=== PATIENT | female | born 2000 | race Caucasian/White ===

== ENCOUNTER 2022-10-13 15:26 | Emergency (ER) | payer BC ==
[~2022-10-13] VITALS: Ht 167.6 cm; Wt 68.5 kg
--- NOTE | 2022-10-13 15:39 | NUR ---
BIB C/O TONGUE SWELLING S/P EATING CASHEWS, PT ATTACHED TO MONITOR, VITALS ARE WITHIN NORMAL LIMITS. NO RESPIRATORY DISTRESS NOTED.
--- NOTE | 2022-10-13 15:45 | NUR ---
PT REFUSED SOLMEDROL AND PEPCE REFUSED TX DR. ROMAN NOTEFED
[2022-10-13] MEDS ORDERED: methylPREDNISolone SOD SUCC 125 MG/2ML VIAL ONE (15:51)
[2022-10-13] MEDS ORDERED: FAMOTIDINE/PF INJ 20 MG/2 ML VIAL IV ONE ×2 (15:52→16:00)
[2022-10-13] MEDS ORDERED: methylPREDNISolone SOD SUCC 125 MG/2ML VIAL IV ONE (16:00)
--- NOTE | 2022-10-13 16:04 | NUR ---
DR. GAMEZ AT BEDSIDE PROVIDING THE RISKS FOR LEAVING AGAINST MEDICAL ADVICE. PT SIGNED AGAINST MEDICAL ADVICE. AMBULATED OUT OF ER WITH STEADY GAIT.
--- NOTE | 2022-10-13 16:06 | NUR ---
PT SIGNED AGAINST MEDICAL ADVICE, SHE REFUSED MEDICATION, AND REFUSED CARE. DR GAMEZ NOTIFIED AND SPOKE WITH THE PT. PT SIGNED AMA PAPERS.
[2022-10-13 16:07] VITALS: BP 156/90
== END 2022-10-13 16:08 | disposition home or self-care (01) ==
LOC: ER 15:29
DX: T78.1XXA Other adverse food reactions, not elsewhere classified, initial encounter (principal); K92.89 Other specified diseases of the digestive system; Z91.018 Allergy to other foods; Z60.2 Problems related to living alone; X58.XXXA Exposure to other specified factors, initial encounter
CPT/HCPCS: J2930; J3490